=== PATIENT | male | born 1950 | race Caucasian/White ===

== ENCOUNTER 2018-02-22 17:02 | Emergency (ER) | END 2018-02-22 19:30 | disposition home or self-care (01) ==

== ENCOUNTER 2018-06-09 00:33 | Observation (INO) | END 2018-06-10 18:55 | disposition home or self-care (01) ==

== ENCOUNTER 2018-12-04 01:42 | Emergency (ER) | payer MEDICARE, OTHER ==
[~2018-12-04] VITALS: Ht 160 cm; Wt 86.3 kg
[~2018-12-04 01:42] MED LIST: OMEG-158 PO; WORK NOTE
[2018-12-04 01:58] VITALS: Ht 160 cm; Wt 86.3 kg
[2018-12-04] MEDS ORDERED: HYDROmorphONE 1 MG/ML SYG IV STA (04:27)
[2018-12-04] MEDS ORDERED: ONDANSETRON 4 MG INJ IV STA (04:27)
[2018-12-04] MEDS ORDERED: SOD CHLORIDE 0.9% 1,000 ML IV STA (04:27)
--- NOTE | 2018-12-04 04:58 | ERD ---
ER Documentation Chief Complaint Chief Complaint left abdominal pain x 4 days HPI This is a 67-year-old male who is complaining of sharp left lower quadrant pain with some pain in the left lumbar region as well. He says the pain also radiates into the left testicle at times. Pain is sometimes worse with urinating. No diarrhea no nausea or vomiting no hematuria dysuria. Pain is been off and on for 4 days more constant this evening so therefore he is here. No prior history of kidney stones ROS All systems reviewed and are negative except as per history of present illness. Medications Home Meds Active Scripts Tamsulosin Hcl* (Flomax*) 0.4 Mg Cap.er.24h, 0.4 MG PO BID, #12 CAP Prov:EUGENIA WILLS DO 12/04/18 Hydrocodone/Acetaminophen ([place] 10-325 Tablet) 1 Each Tablet, 1 TAB PO Q6H PRN for PAIN, #7 TAB Prov:EUGENIA WILLS DO 12/04/18 Ciprofloxacin Hcl* (Ciprofloxacin Hcl*) 500 Mg Tablet, 500 MG PO BID for 10 Days, TAB Prov:JOSE ALFREDO WILLSSTROGES Axel DO 12/04/18 [place]-3/Dha/Epa/Fish Oil (FISH OIL 1,000 MG SOFTGEL) 1 Each Capsule, 1 EACH PO BID, #60 CAP Prov:LIZZY DARNELL NP 06/10/18 Discontinued Scripts Metronidazole* (Flagyl*) 500 Mg Tablet, 500 MG PO TID for 10 Days, TAB Prov:EUGENIA WILLS DO 12/04/18 [Work Note] No Conflict Check Please excuse MR.Samson Palma attending work from 06/09/2018to 06/12/2018 due to his illness requiring hospital admission. Thank you Prov:LIZZY DARNELL NP 06/10/18 Allergies Allergies: Coded Allergies: No Known Allergy (Unverified , 12/04/18) PMhx/Soc History of Surgery: Yes (APPENDECTOMY ANDTONSILECTOMY ) Anesthesia Reaction: No Hx Neurological Disorder: No Hx Respiratory Disorders: No Hx Cardiac Disorders: No Hx Psychiatric Problems: No Hx Miscellaneous Medical Probl: No Hx Alcohol Use: Yes (1 BEER OCCASSIONALLY) Hx Substance Use: No Hx Tobacco Use: Yes (CIGARETTE -QUIT 50 YRS AGO) [facility] History: No coronary disease Physical Exam Vitals Vital Signs Date Temp Pulse Resp B/P (MAP) Pulse Ox O2 O2 Flow FiO2 Time Delivery Rate 12/04/18 65 20 165/100 98 Room Air 04:25 (121) 12/04/18 98.6 63 18 173/98 98 01:58 (123) Physical Exam Const: Well-developed, well-nourished Head: Atraumatic, normocephalic Eyes: Normal Conjunctiva, PERRLA, EOMI, normal sclera, no nystagmus ENT: Normal External Ears, Nose and Mouth, moist mucus membranes. Neck: Full range of motion. No meningismus, no lymphadenopathy. Resp: Clear to auscultation bilaterally, no wheezing, rhonchi, rales Cardio: Regular rate and rhythm, no murmurs, S1 S2 present Abd: Soft, mild to moderate tenderness to the left lower quadrant, non distended. Normal bowel sounds, no guarding or rebound, no pulsitile abdominal masses or bruits Skin: No petechiae or rashes, no ecchymosis , no maculopapular rash Back: No midline or flank tenderness Ext: No cyanosis, or edema, FROM x 4, normal inspection, neurovascularly intact x 4 Neur: Awake and alert, STR 5/5 x 4, sensation intact x 4, no focal findings, cerebellum intact Psych: Normal Mood and Affect Result Diagram: 12/04/1844112/04/18441 Results 24 hrs Laboratory Tests Test 12/04/18 04:42 12/04/18 04:50 White Blood Count 14.8 10^3/ul Red Blood Count 4.57 10^6/ul Hemoglobin 16.0 g/dl Hematocrit 45.6 % Mean Corpuscular Volume 99.8 fl Mean Corpuscular Hemoglobin 35.0 pg Mean Corpuscular Hemoglobin Concent 35.1 g/dl Red Cell Distribution Width 11.2 % Platelet Count 198 10^3/UL Mean Platelet Volume 10.2 fl Immature Granulocytes % 0.900 % Neutrophils % 83.1 % Lymphocytes % 9.1 % Monocytes % 6.1 % Eosinophils % 0.4 % Basophils % 0.4 % Nucleated Red Blood Cells % 0.0 /100WBC Immature Granulocytes # 0.130 10^3/ul Neutrophils # 12.3 10^3/ul Lymphocytes # 1.4 10^3/ul Monocytes # 0.9 10^3/ul Eosinophils # 0.1 10^3/ul Basophils # 0.1 10^3/ul Nucleated Red Blood Cells # 0.0 10^3/ul Sodium Level 143 mmol/L Potassium Level 4.3 mmol/L Chloride Level 104 mmol/L Carbon Dioxide Level 30 mmol/L Anion Gap 9 Blood Urea Nitrogen 21 mg/dl Creatinine 1.44 mg/dl Est Glomerular Filtrat Rate mL/min 49 mL/min Glucose Level 131 mg/dl Calcium Level 9.5 mg/dl Urine Color YELLOW Urine Clarity CLEAR Urine pH 6.0 Urine Specific [place] 1.021 Urine Ketones NEGATIVE mg/dL Urine Nitrite NEGATIVE mg/dL Urine Bilirubin NEGATIVE mg/dL Urine Urobilinogen NEGATIVE mg/dL Urine Leukocyte Esterase NEGATIVE Bird/ul Urine Microscopic RBC 101 /HPF Urine Microscopic WBC 1 /HPF Urine Hemoglobin 1+ mg/dL Urine Glucose NEGATIVE mg/dL Urine Total Protein NEGATIVE mg/dl Current Medications Medications Dose Sig/Tita Start Time Status Last (Trade) Ordered Route PRN Stop Time Admin Dose Reason Admin Sodium 1,000 ml @ Q1H STAT 12/04/18 DC 12/04/18 Chloride 1,000 mls/hr IV 04:27 04:36 12/04/18 05:26 1 mg ONCE STAT 12/04/18 DC 12/04/18 Hydromorphone IV 04:27 04:37 HCl 12/04/18 04:28 (Dilaudid) Ondansetron 4 mg ONCE STAT 12/04/18 DC 12/04/18 HCl (Zofran IV 04:27 04:36 Inj) 12/04/18 04:28 Procedures/MDM MR #: [id number] DOS: 12/04/18 0427 Ordering MD: EUGENIA WILLS DO Location: E/R Room/Bed: PROCEDURE: CT abdomen and pelvis without contrast. CLINICAL INDICATION: Left flank pain TECHNIQUE: CT scan of the abdomen and pelvis without contrast was performed on a multislice CT scanner utilizing axial imaging from the lung bases through the pubis symphysis. The patient was scanned without intravenous contrast. Sagittal and coronal reformatted images were made. The CTDIvol is 17.60 mGy and the DLP is 1150.37 mGycm. DICOM images are available. One of the following 3 dose reduction techniques were used during this CT examination: 1) Automated exposure control 2) Adjustment of the mA +/- kV according to patient size or 3) Use of iterative reconstruction technique COMPARISON: No relevant priors FINDINGS: The lung bases are clear. The heart size is remarkable for mild cardiomegaly No pericardial or pleural effusion is present. The visualized liver, spleen, and distended stomach are normal. The visualized pancreas, gallbladder, and bilateral adrenal glands are normal. No evidence for intrahepatic or extra biliary ductal dilatation is noted. The right kidney is normal. Moderate left hydroureteronephrosis is present secondary to passing a 3 mm left distal ureteral calculus. This is just proximal to entering the left ureterovesicular junction within the bladder. Punctate left nephrolithiasis is noted with left perinephric fluid compatible with a ruptured fornix. The urinary bladder is moderately distended. The visualized bowel demonstrates mild sigmoid and descending colonic diverticulosis without evidence for acute diverticulitis and appendix is not visualized although no evidence for acute appendicitis is present. No evidence for pneumoperitoneum or ascites is present. No pelvic mass, lymphadenopathy, or free fluid is seen. There is no evidence of free air. No aneurysmal dilatation of the aorta is evident. The surrounding osseous structures are remarkable for mild degenerative enthesopathy of the imaged spine with vacuum phenomenon at the T12-L1 level. IMPRESSION: 1. Moderate left hydroureteronephrosis secondary to of passing a 3 mm left distal ureteral calculus. 2. Left nephrolithiasis with left fluid and inflammation compatible with a ruptured fornix. 3. Mild cardiomegaly is present . 4. Diverticulosis without evidence for acute diverticulitis . 5. Appendix not visualized although no evidence for appendicitis A call report was made to Eugenia Wills at 12/04/2018 5:53:15 AM following the completion of the examination by the undersigned. RPTAT: HDC .Dana Camargo MD, Date Time Electronically viewed and signed by .Dana Camargo MD, on 12/04/2018 05:56 .C/ CC: EUGENIA WILLS DO [phone] Radiologist called me to me the patient has a 3 mm left UVJ stone with moderate hydronephrosis some fluid around the kidney may be has a burst fornix. The patient has a white count of 14.9. Is better after pain medication. Discharge him home with prophylactic Cipro, [place] and Flomax. Will follow up with urology given strict warning signs to return. Patient feels much better at this time, and vital signs are normal, symptoms have improved. I did give strict instructions to return to the ED if symptoms continue or worsen, patient will otherwise follow-up with primary care physician. Patient understood instructions and agreed to plan. Disclaimer: Inadvertent spelling and grammatical errors are likely due to EHR/dictation software use and do not reflect on the overall quality of patient care. Also, please note that the electronic time recorded on this note does not necessarily reflect the actual time of the patient encounter. Departure Diagnosis: Primary Impression: Ureterolithiasis Condition: Stable EUGENIA WILLS DO Dec 04, 2018 04:58
[2018-12-04] MEDS ORDERED: METR500T PO (05:43)
[2018-12-04] MEDS ORDERED: HYDR-3980 PO (05:43)
[2018-12-04] MEDS ORDERED: CIPR500T4 PO (05:43)
[2018-12-04] MEDS ORDERED: TAMS-14 PO (05:58)
[2018-12-04 07:21] VITALS: BP 144/84; PULSE 65; RESP 20
== END 2018-12-04 07:25 | disposition home or self-care (01) ==
LOC: E/R 01:42
DX: N20.1 Calculus of ureter (principal); Z87.891 Personal history of nicotine dependence
CPT/HCPCS: 74176; 80048; 81001; 85025; J1170; J2405; J7030; 36415; 96374; 96375

== ENCOUNTER 2019-02-15 08:35 | Emergency (ER) | payer MEDICARE ==
[~2019-02-15] VITALS: Ht 165.1 cm; Wt 88.9 kg
[~2019-02-15 08:35] MED LIST changes: +CIPR500T4 PO; +HYDR-3980 PO; +TAMS-14 PO; -WORK NOTE
[2019-02-15 08:54] VITALS: Ht 165.1 cm; Wt 88.9 kg
[2019-02-15] MEDS ORDERED: KETOROLAC 15 MG INJ IV STA (09:40)
[2019-02-15] MEDS ORDERED: SOD CHLORIDE 0.9% 1,000 ML IV STA (09:40)
[2019-02-15] MEDS ORDERED: HYDR-4011 PO (11:46)
[2019-02-15 11:55] VITALS: BP 135/78; PULSE 60; RESP 18
--- NOTE | 2019-02-15 12:57 | ERD ---
ER Documentation Chief Complaint Chief Complaint lower back pain since last night, no injury HPI 68-year-old male presents with low back pain located to the right side of his back. States the pain has been present for about 2 3 days and is keeping him up at night. He reports that he had a previous episode in November that he came to the ER for and diagnosed him with kidney stones. He is curious to see if this as if this is happening again. He describes the pain as sharp and aching 8 out of 10 and worse at night when he is lying down worse with activity. Reports it is difficult for him to bend or move his back around. He denies any radiation of the pain, any fevers, any loss of bowel or bladder function, any saddle anesthesia. He has been taking [id number] ibuprofen with mild to moderate relief of his pain. ROS All systems reviewed and are negative except as per history of present illness. Medications Home Meds Active Scripts Hydrocodone/Acetaminophen ([place] 5-325 Tablet) 1 Each Tablet, 1 TAB PO Q6H PRN for PAIN, #7 TAB Prov:SRINI CROFT PA-C 02/15/19 Tamsulosin Hcl* (Flomax*) 0.4 Mg Cap.er.24h, 0.4 MG PO BID, #12 CAP Prov:SAMANTHA WILLS DO 12/04/18 Hydrocodone/Acetaminophen ([place] 10-325 Tablet) 1 Each Tablet, 1 TAB PO Q6H PRN for PAIN, #7 TAB Prov:JOSE ALFREDO IWLLSSTROGES A. DO 12/04/18 Ciprofloxacin Hcl* (Ciprofloxacin Hcl*) 500 Mg Tablet, 500 MG PO BID for 10 Days, TAB Prov:OFELIA WILLSS A. DO 12/04/18 [place]-3/Dha/Epa/Fish Oil (FISH OIL 1,000 MG SOFTGEL) 1 Each Capsule, 1 EACH PO BID, #60 CAP Prov:LIZZY DARNELL NP 06/10/18 Allergies Allergies: Coded Allergies: No Known Allergy (Unverified , 12/04/18) PMhx/Soc History of Surgery: Yes (APPENDECTOMY AND TONSILLECTOMY ) Anesthesia Reaction: No Hx Neurological Disorder: No Hx Respiratory Disorders: No Hx Cardiac Disorders: No Hx Psychiatric Problems: No Hx Miscellaneous Medical Probl: No Hx Alcohol Use: Yes (1 BEER OCCASSIONALLY) Hx Substance Use: No Hx Tobacco Use: Yes (CIGARETTE -QUIT 50 YRS AGO) Smoking Status: Former smoker Physical Exam Vitals Vital Signs Date Temp Pulse Resp B/P (MAP) Pulse Ox O2 O2 Flow FiO2 Time Delivery Rate 02/15/19 97.7 60 18 135/78 98 Room Air 11:55 (97) 02/15/19 97.6 62 18 132/82 98 08:54 (99) Physical Exam Const: No acute distress, appears in acute pain Neck: Full range of motion. Resp: Clear to auscultation bilaterally Cardio: Regular rate and rhythm, no murmurs Abd: Soft. Normal bowel sounds Skin: No open wounds, bruising, erythema on back Back: To the right flank and across low back Neur: Awake and alert Psych: Normal Mood and Affect Result Diagram: 02/15/19 0954 02/15/19 0954 Results 24 hrs Laboratory Tests Test 02/15/19 09:54 White Blood Count 7.5 10^3/ul Red Blood Count 4.59 10^6/ul Hemoglobin 15.9 g/dl Hematocrit 45.8 % Mean Corpuscular Volume 99.8 fl Mean Corpuscular Hemoglobin 34.6 pg Mean Corpuscular Hemoglobin Concent 34.7 g/dl Red Cell Distribution Width 11.3 % Platelet Count 222 10^3/UL Mean Platelet Volume 9.9 fl Immature Granulocytes % 0.700 % Neutrophils % 51.6 % Lymphocytes % 35.0 % Monocytes % 9.1 % Eosinophils % 2.8 % Basophils % 0.8 % Nucleated Red Blood Cells % 0.0 /100WBC Immature Granulocytes # 0.050 10^3/ul Neutrophils # 3.9 10^3/ul Lymphocytes # 2.6 10^3/ul Monocytes # 0.7 10^3/ul Eosinophils # 0.2 10^3/ul Basophils # 0.1 10^3/ul Nucleated Red Blood Cells # 0.0 10^3/ul Urine Color STRAW Urine Clarity CLEAR Urine pH 7.0 Urine Specific [place] 1.011 Urine Ketones NEGATIVE mg/dL Urine Nitrite NEGATIVE mg/dL Urine Bilirubin NEGATIVE mg/dL Urine Urobilinogen NEGATIVE mg/dL Urine Leukocyte Esterase NEGATIVE Bird/ul Urine Hemoglobin NEGATIVE mg/dL Urine Glucose NEGATIVE mg/dL Urine Total Protein NEGATIVE mg/dl Sodium Level 142 mmol/L Potassium Level 4.2 mmol/L Chloride Level 103 mmol/L Carbon Dioxide Level 32 mmol/L Anion Gap 7 Blood Urea Nitrogen 16 mg/dl Creatinine 1.04 mg/dl Est Glomerular Filtrat Rate mL/min > 60 mL/min Glucose Level 93 mg/dl Calcium Level 9.5 mg/dl Total Bilirubin 0.9 mg/dl Direct Bilirubin 0.00 mg/dl Indirect Bilirubin 0.9 mg/dl Aspartate Amino Transf (AST/SGOT) 39 IU/L Alanine Aminotransferase (ALT/SGPT) 32 IU/L Alkaline Phosphatase 75 IU/L Total Protein 8.1 g/dl Albumin 4.3 g/dl Globulin 3.80 g/dl Albumin/Globulin Ratio 1.13 Current Medications Medications Dose Sig/Tita Start Time Status Last (Trade) Ordered Route PRN Stop Time Admin Dose Reason Admin Ketorolac 15 mg ONCE STAT 02/15/19 DC 02/15/19 Tromethamine IV 09:40 09:57 (Toradol) 02/15/19 09:46 Sodium 1,000 ml @ Q1H STAT 02/15/19 DC 02/15/19 Chloride 1,000 mls/hr IV 09:40 09:57 02/15/19 10:39 Procedures/MDM ED COURSE: The patient was stable throughout ED course. I kept the patient and/or family informed of laboratory and diagnostic imaging results throughout the ED course. DIAGNOSTIC IMAGING: Read by radiologist. IMPRESSION: 1. No evidence of acute intra-abdominal/pelvic inflammatory process. No evidence of bowel obstruction. Stool filled loops of large bowel suggestive of constipation. 2. No gross renal/ureteric calculi. No evidence of obstructive uropathy. There is resolution of previously noted left-sided hydronephrosis and perinephric fatty stranding. 3. Fatty liver. 4. Mild atherosclerotic disease of the aorta. 5. Fat-containing bilateral inguinal hernias, right greater than left. 6. No evidence of free fluid or free air. No gross focal fluid collections. RPTAT: AAPP Physician Ratna Date Time Electronically viewed and signed by Physician Ratna on 02/15/2019 10:57 . MEDICATIONS GIVEN: IV saline and Toradol Patient tolerated medication well with no adverse reactions. Patient reported improvement in pain. MEDICAL DECISION MAKING: Patient is a [68-year-old male presents with flank pain and low back pain. He reports he had a previous episode 3 months ago which they diagnosed him with kidney stones. Denies any heavy lifting he recalls. Denies any injury or falls. He denies any blood in urine change in urinary habits, saddle anesthesia, loss of bowel control, any fevers or signs of infection. After CT scan the mid and pelvis, also showed history of a fatty liver, aortic changes, and slight constipation. I believe this is just low back pain and I have low suspicion for any cauda equina syndrome, epidural abscess, or severe injuries. Vital signs were reviewed. Patient is afebrile. Patient was not hypoxic. Patient was hemodynamically stable. PRESCRIPTION: [place] DISCHARGE: At this time, patient is stable for discharge and outpatient management. I have instructed the patient to follow-up with his/her primary care physician in 1-2 days. I have discussed with the patient the possibility of needing to see a specialist for further workup and imaging studies if symptoms persist. I have instructed the patient to promptly return to the ER for any new or worsening symptoms including increased pain, fever, nausea, vomiting, weakness or LOC. The patient and/or family expressed understanding of and agreement with this plan. All questions were answered. Home care instructions were provided. Disclaimer: Inadvertent spelling and grammatical errors are likely due to EHR/dictation software use and do not reflect on the overall quality of patient care. Also, please note that the electronic time recorded on this note does not necessarily reflect the actual time of the patient encounter. Departure Diagnosis: Primary Impression: Back pain Back pain location: back pain in other location Chronicity: unspecified Qualified Codes: M54.89 - Other dorsalgia Condition: Fair Patient Instructions: Back Pain (Acute Or Chronic), Constipation (Adult) Referrals: COMMUNITY CLINICS YOU HAVE RECEIVED A MEDICAL SCREENING EXAM AND THE RESULTS INDICATE THAT YOU DO NOT HAVE A CONDITION THAT REQUIRES URGENT TREATMENT IN THE EMERGENCY DEPARTMENT. FURTHER EVALUATION AND TREATMENT OF YOUR CONDITION CAN WAIT UNTIL YOU ARE SEEN IN YOUR DOCTORS OFFICE WITHIN THE NEXT 1-2 DAYS. IT IS YOUR RESPONSIBILITY TO MAKE AN APPOINTMENT FOR FOLOW-UP CARE. IF YOU HAVE A PRIMARY DOCTOR --you should call your primary doctor and schedule an appointment IF YOU DO NOT HAVE A PRIMARY DOCTOR YOU CAN CALL OUR PHYSICIAN REFERRAL HOTLINE AT IF YOU CAN NOT AFFORD TO SEE A PHYSICIAN YOU CAN CHOSE FROM THE FOLLOWING [facility] [address] [facility] [address] [facility] [address] [facility] [address] [facility] [address] [facility]. [facility] [address] [facility]. [facility] YOU HAVE RECEIVED A MEDICAL SCREENING EXAM AND THE RESULTS INDICATE THAT YOU DO NOT HAVE A CONDITION THAT REQUIRES URGENT TREATMENT IN THE EMERGENCY DEPARTMENT. FURTHER EVALUATION AND TREATMENT OF YOUR CONDITION CAN WAIT UNTIL YOU ARE SEEN IN YOUR DOCTORS OFFICE WITHIN THE NEXT 1-2 DAYS. IT IS YOUR RESPONSIBILITY TO MAKE AN APPOINTMENT FOR FOLOW-UP CARE. IF YOU HAVE A PRIMARY DOCTOR --you should call your primary doctor and schedule and appointment IF YOU DO NOT HAVE A PRIMARY DOCTOR YOU CAN CALL OUR PHYSICIAN REFERRAL HOTLINE AT . IF YOU CAN NOT AFFORD TO SEE A PHYSICIAN YOU CAN CHOSE FROM THE FOLLOWING [facility]: [facility] [address] [place] [address] [facility] [address] [place] [address] [facility] + [facility] [address] [place] [address] Additional Instructions: Call your primary care doctor TOMORROW for an appointment during the next 1-2 days.See the doctor sooner or return here if your condition worsens before your appointment time. SRINI CROFT PA-C February 15, 2019 12:55
== END 2019-02-15 11:55 | disposition home or self-care (01) ==
LOC: FTE 08:35
DX: M54.89 Other dorsalgia (principal); Z87.891 Personal history of nicotine dependence
CPT/HCPCS: 74176; 80053; 81003; 85025; 96361; 96374; 99285; J1885; J7030